=== PATIENT | female | born 1950 | race Caucasian/White ===

== ENCOUNTER 2018-01-31 19:15 | Inpatient (IN) | payer OTHER ==
[2018-01-31] MEDS ORDERED: PANTOPRAZOLE 40 MG INJ IVP ONE (19:53)
[2018-01-31] MEDS ORDERED: SODIUM CHLORIDE 0.9% 10ML INJ IV PRN (19:53)
[2018-01-31 20:30] LABS: Absolute Lymphocytes (CBC) 1.2 K/uL (0.7-4.9); Absolute Neutrophil 13.1 K/uL (1.8-8.0); Basophils % 0.5 % (0-1.3); Eosinophils % 0.1 % (0-4.4); Hematocrit 39.6 % (36.0-45.0); Lymphocytes % 7.6 % (15.3-44.8); MCH 30.5 pg (27.0-35.0); MPV 9.3 fL (7.6-11.3); Monocytes % 6.2 % (3.3-12.3); RBC Red Blood Cell Count 4.45 M/uL (3.86-4.86)
[2018-01-31 20:36] LABS: Potassium 4.3 mEq/L (3.6-5.0)
[2018-01-31 20:39] LABS: Bilirubin Total 1.4 mg/dL (0.3-1.2); Magnesium 1.8 mg/dL (1.8-2.5); Protein, Total 7.2 g/dL (6.0-8.3)
[2018-01-31 20:59] LABS: Blood Morphology Comment NOT SEEN (NOT SEEN); Platelet Estimate ADEQ
[2018-01-31 21:15] VITALS: BMI 27.6
[2018-01-31] MEDS: NA CHLORIDE 0.9% 1,000 ML IV SCH (21:25)
[2018-01-31] MEDS: MEPERIDINE HCL 25 MG/0.5 ML IV PRN (21:26)
[2018-01-31] MEDS: ONDANSETRON 4 MG/2 ML VIAL IV PRN (21:26)
[2018-01-31] MEDS: ACETAMINOPHEN 500 MG TAB PO PRN (22:50)
[2018-01-31] MEDS: CIPROFLOXACIN 400mg IV 400 MG/200 ML BAG IV SCH (22:51)
--- NOTE | 2018-01-31 23:00 | RAD REPORT ---
EXAM DESCRIPTION: RAD - Abdomen Acute Series - 01/31/2018 10:50 pm CLINICAL HISTORY: Abdominal pain COMPARISON: None. FINDINGS: The lungs appear somewhat fibrotic but clear. No subdiaphragmatic free air seen. The heart is normal in size. Bowel gas pattern is nonobstructive. Oral contrast is noted in the colon and small bowel. No patholog ic calcifications seen. Hardware is in place in both hips. Moderate lumbosacral degenerative changes are noted. IMPRESSION: No acute finding is demonstrated.
[2018-01-31 23:06] LABS: Urine Appearance CLOUDY; Urine Bilirubin NEGATIVE (NEG); Urine Blood 1+ (NEG); Urine Color YELLOW; Urine Glucose NEGATIVE (NEG); Urine Protein NEGATIVE (NEG); Urine Urobilinogen 0.2 mg/dL (0.2-1.0); Urine pH 5.5 (5.0-7.0)
[2018-01-31 23:23] LABS: Urine Bacteria >50 /HPF (<20); Urine Culture Reflex Order NOT NEEDED; Urine RBC <5 /HPF (NONE SEEN)
[2018-02-01] MEDS: METRONIDAZOLE 500mg IVPB 500 MG/100 ML BAG IV SCH ×3 (00:08→16:07)
[2018-02-01] MEDS: ACETAMINOPHEN 500 MG TAB PO PRN ×5 (02:29→20:44)
[2018-02-01] MEDS ORDERED: MAGNESIUM SULFATE 1 gm IVPB 1 GM/100 ML BAG IV ONE (03:00)
[2018-02-01] MEDS: MEPERIDINE HCL 25 MG/0.5 ML IV PRN ×2 (03:19→20:44)
[2018-02-01] MEDS: NA CHLORIDE 0.9% 1,000 ML IV SCH ×3 (03:19→20:00)
[2018-02-01] MEDS: ONDANSETRON 4 MG/2 ML VIAL IV PRN ×4 (04:34→20:54)
[2018-02-01] MEDS: PANTOPRAZOLE 40MG TABLET PO SCH (05:40)
[2018-02-01 06:45] LABS: Magnesium 2.4 mg/dL (1.8-2.5)
[2018-02-01] MEDS ORDERED: NA CHLORIDE 0.9% 250 ML IV ONE ×4 (07:40→12:01)
[2018-02-01] MEDS: CIPROFLOXACIN 400mg IV 400 MG/200 ML BAG IV SCH ×2 (08:01→20:44)
[2018-02-01] MEDS: ENOXAPARIN 40 MG/0.4 ML SQ SCH (08:03)
--- NOTE | 2018-02-01 08:17 | RAD REPORT ---
EXAM DESCRIPTION: CT - Abdomen Pelvis Wo Contrast - 01/31/2018 10:32 pm CLINICAL HISTORY: Abdominal pain. COMPARISON: 10/28/2014 TECHNIQUE: CT imaging of the abdomen and pelvis was performed without contrast. Solid organ, bowel a nd vascular assessment is limited due to lack of IV and oral contrast. All CT scans are performed using dose optimization technique as appropriate and may include automated exposure control or mA/KV adjustment according to patient size. FINDINGS: The lower lung abdi are clear. The liver, spleen, pancreas, adrenal glands and right kidney are within normal limits for a limited n on-contrast examination.Mild left hydronephrosis and hydroureter is present. Most likely, there is a distal left ureter stone present, however at the large amount of streak artifact from hip prosthesis limits evaluation/visualization. No bowel obstruction, free air, free fluid or abscess. The appendix is not identified as a discrete structure, however, no secondary findings of appendicitis are identified. The osseous structures are within normal limits. IMPRESSION: Mild left hydronephrosis and hydroureter is present. There is most likely a stone or brynn ris/ edema within the distal left ureter, however adequate visualization is not possible due to abund ant streak artifact. A limited non-contrast examination was performed as detailed.
[2018-02-01 10:42] LABS: Absolute Lymphocytes (CBC) 0.9 K/uL (0.7-4.9); Absolute Monocytes 0.8 K/uL (0.1-1.3); Absolute Neutrophil 10.3 K/uL (1.8-8.0); Basophils % 0.2 % (0-1.3); Eosinophils % 0.1 % (0-4.4); Hematocrit 33.4 % (36.0-45.0); Lymphocytes % 7.5 % (15.3-44.8); MCH 31.3 pg (27.0-35.0); MPV 9.2 fL (7.6-11.3); Monocytes % 6.9 % (3.3-12.3); RBC Red Blood Cell Count 3.71 M/uL (3.86-4.86)
[2018-02-01] MEDS: Meropenem 1,000 MG in NA CHLORIDE 0.9% 100 ML IV SCH ×2 (10:45→17:59)
[2018-02-01 10:53] LABS: Potassium 3.7 mEq/L (3.6-5.0)
[2018-02-01 11:00] LABS: Albumin 3.4 g/dL (3.2-5.5); Bilirubin Direct 0.2 mg/dL (0-0.2); Protein, Total 6.2 g/dL (6.0-8.3)
[2018-02-01] MEDS ORDERED: Meropenem 1000 MG/VIAL IV SCH (11:00)
--- NOTE | 2018-02-01 12:06 | RAD REPORT ---
EXAM DESCRIPTION: RAD - Chest Single View - 02/01/2018 11:47 am CLINICAL HISTORY: Chest pain. COMPARISON: 01/31/2018 FINDINGS: Portable technique limits examination quality. The lungs are grossly clear. The heart is normal in size. No displaced fractures. IMPRESSION: No acute intrathoracic process suspected.
[2018-02-01] MEDS ORDERED: NA CHLORIDE 0.9% 250 ML ONE (13:26)
--- NOTE | 2018-02-01 15:00 | RAD REPORT ---
EXAM DESCRIPTION: CT - Abdomen Pelvis W Contrast - 02/01/2018 2:38 pm CLINICAL HISTORY: Hydronephrosis, possible sepsis clinical presentation COMPARISON: Noncontrast CT study January 31, contrast CT study October 2014 TECHNIQUE: Biphasic, helical CT imaging of the abdomen and pelvis was performed following 100 ml non -ionic IV contrast. Oral contrast was given. Delayed imaging was performed at [address] scans are performed using dose optimization technique as appropriate and may include automated exposure control or mA/KV adjustment according to patient size. FINDINGS: No suspicious lung base finding. The liver, spleen, and pancreas show no suspicious findings. Splenic size is upper normal. Gallbladde r is distended but not dilated. Gallstones can be occult on CT imaging. Gallbladder wall does not padmini ear thickened or edematous. Intrahepatic and extrahepatic biliary tree are mildly prominent. Duct sto mellissa can be occult. No pancreatic or duodenal mass or focal abnormality. This may be biliary tree and gallbladder distention in hospitalized patient. Correlation can be made with any biliary obstructive findings. These are new findings from January 31. No right-sided hydronephrosis. Right side renal function is normal. No stone, mass or other suspiciou s right-sided renal finding. Dilatation of the left side pelvis and calices again noted. Most of this is due to an extrarenal pelvis variant. Size of the pelvis and calices is increased slightly when co mpared to 2014. Current amount of pelvis dilatation is similar to January 31. More distally the right ure ter is not clearly dilated. No obstructing calculus suspected. Pelvic floor assessment is limited due to the bilateral hip prosthesis spray artifact. The patient has numerous pelvic floor phleboliths th at appear to match up to 2014 imaging. An obstructing calculus is not suspected. There is heterogenei ty of the renal parenchymal enhancement pattern. There is an overall congested or edematous appearanc e to the left kidney wished stranding minimally present in the perinephric fat. [place] of the left pel vis and ureter enhance. Delayed images show no significant degree of delay or asymmetry in function. Partially filled urinary bladder shows no suspicious finding. Again, the spray artifact limits pelvic floor assessment. No gastric dilatation or gastric wall thickening. No dilated large or small bowel. An acute bowel pro cess is not suspected. Contrast has reached the distal rectum. No free air, free fluid or pneumatosis. No hernia, mass or bulky lymphadenopathy. Bladder wall thick ening or enhancement not suspected. No adrenal abnormality. No suspicious bony findings. IMPRESSION: Left-sided ureteritis and pyelonephritis are present. No abscess or surgically emergent finding. No new or progressive hydronephrosis findings. Most of the left sided dilatation is at the left renal pelvic level as a normal variant extrarenal pelvis. The absence of any measurable delay or asymmetry in function would support absence of any obstructive process. Distended gallbladder and mildly dilated biliary tree without evidence for mass or stone. This could be physiologic dilatation seen in hospitalized patients. Correlation is needed with any biliary obstr uctive findings.
[2018-02-01] MEDS ORDERED: LOPERAMIDE HCL 2 MG CAPSULE PO STA (17:35)
[2018-02-01] MEDS: ATORVASTATIN 40 MG TAB PO SCH (20:44)
[2018-02-01] MEDS: LORAZEPAM 0.5 MG TABLET PO PRN (22:10)
[2018-02-01] MEDS: ZOLPIDEM TARTRATE 5 MG TABLET PO PRN (22:10)
[2018-02-02] MEDS: Meropenem 1,000 MG in NA CHLORIDE 0.9% 100 ML IV SCH (01:00)
--- NOTE | 2018-02-02 01:18 | PN ---
Date of Progress Note: 02/01/2018 Subjective: The patient was seen this morning for followup. She was complaining of headache, some n ras pain, abdominal pain, and did not get much rest last night, was not feeling good, and appeared qu ite weak and tired and ill-appearing. No vomiting, diarrhea, but abdominal pain continues, unchanged from yesterday. Her blood pressure was low, 98/58, early this morning. After I saw her, IV fluid b olus was ordered and CAT scan result was still pending. When I saw her this morning subsequently, CA T scan result was available. Objective: Vital Signs: Reviewed. HEENT: Unremarkable. Lungs: Clear to auscultation. Heart: Sounds normal. Abdomen: Soft. No guarding, rigidity. Bowel sounds normoactive. No distention. The patient has d iffuse abdominal tenderness, more so in lower abdomen than upper abdomen, unchanged from yesterday. Extremities: No leg edema. Laboratory Data: White count 12, hemoglobin 11.6, and platelets 131. Sodium 130, potassium 4, chlor kenna 96, bicarb 28, BUN 13, creatinine 1.09, and glucose 121. Repeat chemistry shows BUN 11, creatini ne 0.99, and sodium 130. Liver function tests normal. Procalcitonin 0.19. Lactic acid level 10.6. Urine culture, blood culture pending. CAT scan of abdomen and pelvis done yesterday late evening sh owed [id number] left-sided hydronephrosis and this was CAT scan without contrast. So, today, w e did obtain CAT scan of the abdomen with contrast and it was a triple-phase study. Result was discu ssed with radiologist, which shows left-sided ureteritis and pyelonephritis present. No abscess or s urgical emergent finding. No hydronephrosis type of finding. Distended gallbladder and mildly dilat ed biliary tree without any evidence of mass or stone. Impression: 1.Septic shock. 2.Acute pyelonephritis. 3.Anemia. 4.Thrombocytopenia. 5.Hyperlipidemia, mixed. 6.Osteoporosis. 7.Osteoarthritis, multiple sites. 8.Gastroesophageal reflux disease. Plan: When I saw the patient this morning, she appeared very weak, tired, ill-appearing, and subsequ ently after the CAT scan result was available, we did order further CAT scan study to rule out any ev idence of stone and we were able to ruled that out and what we believe now what the patient has is se ptic shock type of situation with urinary tract infection, which is in form of acute pyelonephritis. We will discontinue metronidazole. Meropenem was added, and we will continue her Cipro. DVT prophy laxis will be continued using Lovenox. Pain medications will be continued per order. The patient re ceived multiple IV fluid boluses today as her blood pressure was low and finally her blood pressure h as started to come up. Her lowest blood pressure this morning was 84/48. I did go back to check on her late this morning and she had received IV fluid boluses and this was when I saw her. It was just before she went down for repeat CAT scan. So, she was already looking better with multiple IV fluid boluses and meropenem which was being given to her. So, overall her condition actually already has started to show improvement. She was feeling better and her abdominal tenderness also had improved b y the time when I saw her. Her son was present with her at bedside. Our plan is not to continue IV fluid, continue Cipro, meropenem, and follow up on urine culture as of this evening urine culture is growing gram-negative rods. We will continue her home medications per order. Diet was ordered, and I will see her tomorrow for followup. I wanted to have a Urology consultation, but our urologist, Dr Inocente Gaspar, is out of town. So, we will have the patient follow up with him on an outpatient basis for further evaluation. We will repeat blood work tomorrow. VINEET/MODL Voice ID: [id number] Report ID: [id number]
--- NOTE | 2018-02-02 04:03 | HP ---
Date of Admission: 01/31/2018 Chief Complaint: Not feeling good. History Of Present Illness: This is a 67-year-old female patient, who came into my office with her s on today with complaints of not feeling good at all. She had EGD done by Dr. Balderas on 01/25/2018 and it showed stomach ulcer in the antrum area, hiatal hernia, and was prescribed pantoprazole. The vanessa ent says that she is scheduled to have colonoscopy next week, but meanwhile as of this week on which is 2 days ago now, she started to have abdominal pain, fever, chills, some earache, body ache , burning sensation on urination. She has been having nausea and vomiting. She did not eat anything today and also did not eat anything yesterday. She had very small amount of water and few sips of j uice today and yesterday. No diarrhea. She is feeling very weak and feeling lightheaded, especially when she gets up. She did not feel comfortable driving to my office, so her son drove her to my off ice. After she was evaluated, she was admitted to the hospital. Allergies: TO MORPHINE, PENICILLIN, VANCOMYCIN, AND VALDECOXIB. Medications: Atorvastatin 40 mg at bedtime, clonazepam 0.5 mg daily as needed for anxiety, pantopraz ole 40 mg daily, Prozac 40 mg daily, vitamin C daily, and Tums daily. Review of Systems: GI: As mentioned above. Genitourinary: As mentioned above. Constitutional: As mentioned above. All other systems reviewed and negative. Past Medical History: Significant for diverticulosis, impaired fasting glucose, osteoporosis, mixed hyperlipidemia, osteoarthritis at multiple sites, gastroesophageal reflux disease, carpal tunnel synd audelia. Past Surgical History: Cataract surgery, hip replacement, hysterectomy, tonsillectomy. Family History: Mother had abdominal aortic aneurysm. Social History: Negative for smoking or alcohol use. Physical Examination: Vital Signs: When the patient came into office today: Height 5 feet 1 inch, weight 148 pounds, temp erature 97.6, pulse 76, respiratory rate 15, her supine blood pressure was 110/70, sitting 102/70, st anding 100/74. General: The patient appears acutely ill, not in any distress, appears very weak. HEENT: Head atraumatic, normocephalic. Conjunctivae nonerythematous. Sclerae white. Mouth, no thr ush or edema noted. Ears/Nose, no mass, lesion, discharge noted. Neck: Supple. No JVD, lymph nodes, bruit, thyromegaly noted. Lungs: Bilateral good equal air entry. Clear to auscultation. No rhonchi. No rales. Heart: Normal heart sounds, no murmur or gallop. Abdomen: She has diffuse tenderness all over her abdomen, more so in lower abdomen than upper abdome n. No rebound tenderness. No distention. Bowel sounds normoactive. No hepatosplenomegaly. Extremities: No leg edema. No calf tenderness. Skin: No rash, ulcer, cellulitis. Lymphatics: No lymph node enlargement in neck, supraclavicular, infraclavicular region. Neuro: No focal neurological deficit. Chest: Unremarkable. External Genitalia: Deferred. Rectal: Deferred. Laboratory Data: White count 15.3, hemoglobin 13.6, platelets 151. Sodium 130, potassium 4.3, chlor kenna 96, bicarb 27, BUN 12, creatinine 1.07, glucose 136. Liver function tests unremarkable. Urinaly sis; 3+ esterase, more than 50 wbc's, bacteria more than 50, 1+ blood. Abdominal x-ray unremarkable. CAT scan of the abdomen and pelvis was ordered and it was done, result pending. Impression: 1.Volume depletion. 2.Urinary tract infection. 3.Acute diverticulitis. 4.Hyperlipidemia. 5.Osteoporosis. 6.Osteoarthritis, multiple sites. 7.Impaired fasting glucose. 8.Gastroesophageal reflux disease. Plan: Admit the patient to hospital for further evaluation and management of this problem. The vanessa ent is appropriate for inpatient and is expected to spend 2 midnights in hospital. We will go ahead and initiate IV fluid, IV antibiotics; follow up on culture results; repeat blood work tomorrow; and DVT prophylaxis will be given per order. Details and plan of treatment discussed with the patient. VINEET/DAMI Voice ID: [id number]
[2018-02-02] MEDS: NA CHLORIDE 0.9% 1,000 ML IV SCH ×3 (04:28→20:59)
[2018-02-02] MEDS: ACETAMINOPHEN 500 MG TAB PO PRN ×2 (04:29→09:06)
[2018-02-02] MEDS: PANTOPRAZOLE 40MG TABLET PO SCH (05:52)
[2018-02-02 05:57] LABS: Absolute Lymphocytes (CBC) 0.7 K/uL (0.7-4.9); Absolute Monocytes 0.6 K/uL (0.1-1.3); Absolute Neutrophil 7.4 K/uL (1.8-8.0); Basophils % 0.2 % (0-1.3); Eosinophils % 0.2 % (0-4.4); Hematocrit 30.5 % (36.0-45.0); Lymphocytes % 8.3 % (15.3-44.8); MCH 30.6 pg (27.0-35.0); MCV 90.2 fL (80-100); Monocytes % 6.9 % (3.3-12.3); RBC Red Blood Cell Count 3.38 M/uL (3.86-4.86)
[2018-02-02 06:46] LABS: Magnesium 2.1 mg/dL (1.8-2.5); Potassium 3.7 mEq/L (3.6-5.0)
[2018-02-02] MEDS ORDERED: CEFTRIAXONE 1 GM/NS 50 ML 1 GM/50 ML BAG IV SCH (09:00)
[2018-02-02] MEDS ORDERED: VITAMIN D3 PO SCH (09:00)
[2018-02-02] MEDS ORDERED: POTASSIUM CL SA 10 MEQ TAB PO ONE (09:00)
[2018-02-02] MEDS ORDERED: CALCIUM CARBONATE PO SCH (09:00)
[2018-02-02] MEDS: CIPROFLOXACIN 400mg IV 400 MG/200 ML BAG IV SCH ×2 (09:04→20:47)
[2018-02-02] MEDS: CEFTRIAXONE/SWI 1gm 1 GM/10 ML SYR IV SCH ×2 (09:04→20:47)
[2018-02-02] MEDS: FLUOXETINE 20 MG CAP PO SCH (09:05)
[2018-02-02] MEDS: CALCIUM CARB 500MG/VIT D 200 IU TAB PO SCH (09:06)
[2018-02-02] MEDS: ENOXAPARIN 40 MG/0.4 ML SQ SCH (09:06)
[2018-02-02] MEDS: IBUPROFEN 400 MG TAB PO SCH ×2 (10:43→17:26)
--- NOTE | 2018-02-02 15:54 | PN ---
Date of Progress Note: 02/02/2018 Subjective: The patient was seen this morning for followup. No new complaints or problems reported by patient. Overall, she feels better today than yesterday. Still has some neck pain and little bit headache, but abdominal pain is better. Has diarrhea since her CAT scan yesterday, and she did requ tessie one dose of Imodium yesterday, which she says, it has helped her. No vomiting. Objective: Vital Signs: Reviewed. HEENT: Examination unremarkable. Lungs: Clear to auscultation. Heart: Heart sounds normal. Abdomen: Soft. Bowel sounds normal. No guarding, rigidity, or distention. Presence of mild tender ness in lower abdomen. Overall, much better today than yesterday. Extremities: No leg edema. Laboratory Data: White count 8.8, hemoglobin 10.4, platelets 124. Sodium 133, potassium 3.7, chlori de 105, bicarb 26, BUN 8, creatinine 0.95, glucose 129. Urine culture growing E coli. Blood culture , pending so far. Impression: 1.Acute pyelonephritis. 2.Septic shock, improved. 3.Insomnia. 4.Thrombocytopenia. 5.Anemia. Plan: We will continue Cipro and add ceftriaxone. The patient does not need any meropenem use, so w e will discontinue that medication. According to culture sensitivity, Cipro and ceftriaxone should w ork very well on the E coli infection she has. If she has positive blood culture, we may have to giv e IV antibiotics probably for 5-7 days, and then send her home with oral antibiotics, like Cipro for 2 weeks or so. If her blood culture comes back negative and if her condition is better, then by Ata bauman, which is day after tomorrow, we will consider discharging her with 2 weeks of oral antibiotics, C ipro. Upon discharge from the hospital, she should follow up with a urologist for further evaluation and management, considering the severity of the urinary tract infection that she has. She understan ds that, and she will follow up with Dr. Gaspar. Ambulation was encouraged today and we will reduce I V fluid rate to 75 cc/hour. We will go ahead and give some ibuprofen per order for her neck pain. VINEET/MODL Voice ID: [id number] Report ID: [id number]
[2018-02-02] MEDS: ATORVASTATIN 40 MG TAB PO SCH (20:47)
[2018-02-02] MEDS: ZOLPIDEM TARTRATE 5 MG TABLET PO PRN (20:59)
[2018-02-02] MEDS: DIGOXIN 0.25 MG/ML AMP IV SCH (23:26)
[2018-02-02] MEDS: ENOXAPARIN 80 MG/0.8 ML SQ SCH (23:29)
[2018-02-02 23:31] LABS: Potassium 3.6 mEq/L (3.6-5.0)
[2018-02-02] MEDS: NA CHLORIDE 0.9% 250 ML IV PRN ×2 (23:31→23:51)
[2018-02-03] MEDS ORDERED: POTASSIUM 25 MEQ EFFERV TAB PO ONE (00:16)
[2018-02-03] MEDS: ACETAMINOPHEN 500 MG TAB PO PRN (00:37)
[2018-02-03] MEDS: DIGOXIN 0.25 MG/ML AMP IV SCH (05:00)
[2018-02-03] MEDS: PANTOPRAZOLE 40MG TABLET PO SCH (06:04)
[2018-02-03 06:05] LABS: Potassium 4.3 mEq/L (3.6-5.0)
[2018-02-03 07:45] LABS: Absolute Monocytes 0.4 K/uL (0.1-1.3); Absolute Neutrophil 3.2 K/uL (1.8-8.0); Basophils % 0.4 % (0-1.3); Eosinophils % 3.8 % (0-4.4); Hematocrit 31.7 % (36.0-45.0); Lymphocytes % 20.4 % (15.3-44.8); MCH 31.1 pg (27.0-35.0); MCV 89.6 fL (80-100); MPV 8.6 fL (7.6-11.3); Monocytes % 8.7 % (3.3-12.3); RBC Red Blood Cell Count 3.53 M/uL (3.86-4.86)
[2018-02-03] MEDS: IBUPROFEN 400 MG TAB PO SCH (08:05)
[2018-02-03] MEDS: FLUOXETINE 20 MG CAP PO SCH (08:05)
[2018-02-03] MEDS: CIPROFLOXACIN 400mg IV 400 MG/200 ML BAG IV SCH ×2 (08:06→20:24)
[2018-02-03] MEDS: CEFTRIAXONE/SWI 1gm 1 GM/10 ML SYR IV SCH ×2 (08:06→20:24)
[2018-02-03] MEDS: ENOXAPARIN 80 MG/0.8 ML SQ SCH (08:06)
[2018-02-03] MEDS: NA CHLORIDE 0.9% 1,000 ML IV SCH ×2 (11:40→13:35)
--- NOTE | 2018-02-03 11:48 | PN ---
Date of Progress Note: 02/03/2018 Subjective: The patient was seen this morning for followup. When I walked into her room, she was up set because she has been sick lately and she is concerned that too many things wrong with her. I did talk to her and tried to explain her and reassured her. Last night, she had atrial fibrillation wit h rapid ventricular rate. Her heart rate was around 130 or so. She was given 1 dose of digoxin, and her potassium and magnesium were normal. She converted to sinus rhythm during nighttime after just 1 dose of digoxin. Second dose of digoxin was not given. This morning, she was complaining of feeli ng bloated and some discomfort in the epigastric and right upper quadrant region. Objective: Vital Signs: Reviewed. HEENT: Unremarkable. Lungs: Clear to auscultation. No rhonchi or rales. Heart: Heart sounds normal. Abdomen: Soft. Bowel sounds normal. No guarding, rigidity. Presence of tenderness in right upper quadrant. No rebound tenderness. Extremities: No leg edema. Laboratory Data: White count 4.8, hemoglobin 11, platelets 131. Sodium 141, potassium 4.3, chloride 111, bicarb 27, BUN 7, creatinine 0.82, glucose 111. TSH 4.62. Magnesium last night was 2.0 when t he patient had atrial fibrillation problem. Impression: 1.Acute pyelonephritis. 2.Septic shock, resolved. 3.Right upper quadrant pain. 4.Thrombocytopenia. Plan: We will go ahead and get abdominal ultrasound done. It will be a limited right upper quadrant ultrasound to evaluate gallbladder. On CAT scan, her gallbladder was distended, but that could be b ecause of her acute illness, but there was no evidence of any gallbladder wall thickening or fluid ar ound the gallbladder, so it did not look like acute cholecystitis, but today she definitely is having right upper quadrant pain and tenderness and we will need to look into that. Depending on the ultra sound result, we will decide about general surgeon to be consulted. Meanwhile, we will continue anti biotics, Cipro and ceftriaxone for her pyelonephritis problem. Ambulation was encouraged. I will se e her tomorrow for followup. VINEET/MODL Voice ID: [id number] Report ID: [id number]
[2018-02-03] MEDS: CALCIUM CARB 500MG/VIT D 200 IU TAB PO SCH (13:35)
--- NOTE | 2018-02-03 13:58 | RAD REPORT ---
EXAM DESCRIPTION: US - Abdomen Exam Limited - 02/03/2018 1:36 pm CLINICAL HISTORY: Abdominal pain. COMPARISON: February 02, 2018 cat scan FINDINGS: The gallbladder wall is is thickened. Pericholecystic fluid is present. A gallstone is no t seen The common bile duct measures 8 millimeter IMPRESSION: Thickening of the gallbladder wall with pericholecystic fluid could indicate acute naila cystitis. Other possibilities include systemic causes such as liver dysfunction, renal and heart fail ure. The examination was discussed with Dr. Pabon 1:50 p.m. on February 03, 2018 Mild dilatation of the common bile duct
[2018-02-03] MEDS: MEPERIDINE HCL 25 MG/0.5 ML IV PRN ×2 (16:33→20:25)
[2018-02-03] MEDS: ATORVASTATIN 40 MG TAB PO SCH (20:24)
[2018-02-03] MEDS: ONDANSETRON 4 MG/2 ML VIAL IV PRN (20:26)
[2018-02-03] MEDS: ZOLPIDEM TARTRATE 5 MG TABLET PO PRN (21:32)
[2018-02-04] MEDS: ACETAMINOPHEN 500 MG TAB PO PRN ×3 (00:03→22:33)
--- NOTE | 2018-02-04 01:32 | CON ---
Date of Consultation: 02/03/2018 Reason For Service: Epigastric right upper quadrant pain. Indication For Procedure: This is the case of a 67-year-old patient, who came to us on sepsis, found to be possible etiology a pyelonephritis at the same time. She did state that she could be developi ng also acute cholecystitis and a Surgical consult was obtained for evaluation. I discussed the hist ory with Dr. Pabon, since he has been seeing the patient for few days. He gave me some details about the case. The patient stated that her pain is on the right flank and also right upper quadrant. She denies having any hematuria although she states some dysuria. Denies any recent traveling out of [facility]. Denies any family member sick at home. Allergies: INCLUDE MORPHINE, PENICILLIN, AND VANCOMYCIN. Past Surgical History: Included hip replacement, hysterectomy, tonsillectomy, and cataract surgery. Family History: Includes peripheral vascular disease. Social History: She does not smoke. She does not drink alcohol. Review of Systems: Constitutional: Denies any fever. Respiratory: Denies any shortness of breath. Gastrointestinal: Right upper quadrant pain. No jaundice. Genitourinary: The patient states some dysuria. Physical Examination: General: The patient is awake and alert. HEENT: Pupils equal, reactive, anicteric. Neck: Supple. Abdomen: Mild right upper quadrant tenderness. No Perez signs today. Pelvic/rectal: Deferred. Extremities: Good capillary refill. Laboratory Data: Blood work shows WBC count of 4.8, although it came down from 15.3, about 3 days ag o. Potassium is 4.3 with LFTs within normal limits. UA shows a nitrite negative and WBC count of mo re than 50. Diagnostic Data: Ultrasound today shows thickening of gallbladder, cannot rule out acute cholecystit is. CAT scan of the abdomen and pelvis read by Dr. Edge 2 days ago. At that moment, the gallblad cody was distended but not dilated and the gallbladder wall did not appear to be thickened or edematou s. No stone seen at that moment. Assessment And Plan: This is a 67-year-old patient, who came here with pyelonephritis with septic sh ock. At that moment, the gallbladder was fine but no diffuse inflammation of the gallbladder with a calculus cholecystitis as the working diagnosis. The patient already on antibiotics. She has no Mur phy sign, but she is scheduled a HIDA scan for tomorrow. The patient understood she may have to go f or laparoscopic, possible open, cholecystectomy with benefits, alternatives, and risks explained. We will wait for that test. We are going to keep her n.p.o. after midnight, and then we will proceed a ccordingly. TOPHER Voice ID: [id number] Report ID: [id number]
[2018-02-04] MEDS: NA CHLORIDE 0.9% 1,000 ML IV SCH ×2 (02:21→16:10)
[2018-02-04] MEDS: PANTOPRAZOLE 40MG TABLET PO SCH (07:07)
[2018-02-04] MEDS: FLUOXETINE 20 MG CAP PO SCH (09:18)
[2018-02-04] MEDS: CEFTRIAXONE/SWI 1gm 1 GM/10 ML SYR IV SCH ×2 (09:18→20:08)
[2018-02-04] MEDS: CALCIUM CARB 500MG/VIT D 200 IU TAB PO SCH (09:18)
[2018-02-04] MEDS: CIPROFLOXACIN 400mg IV 400 MG/200 ML BAG IV SCH ×2 (09:18→20:08)
--- NOTE | 2018-02-04 09:30 | EKG ---
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
[2018-02-04] MEDS ORDERED: METOPROLOL TARTRATE 5 MG/5 ML INJ IV STA (09:43)
--- NOTE | 2018-02-04 09:45 | RAD REPORT ---
EXAM DESCRIPTION: NM - Hepatobiliary System W/ Ph - 02/04/2018 8:06 am CLINICAL HISTORY: Abdominal pain. TECHNIQUE: 6 millicuries technetium Choletec was administered intravenously. 1.4 micrograms Kinevac was administered intravenously and images of the gallbladder obtained for 36 minutes. COMPARISON: Ultrasound February 03, 2018. FINDINGS: The liver demonstrates prompt radiotracer uptake. Activity is seen within the gallbladder by 13 minutes. Uptake is seen within small bowel. After the administration of CCK gallbladder ejection fraction equals 59%. The patient was asymptomatic. IMPRESSION: 1. No evidence of acute cholecystitis as radiotracer enters the gallbladder. 2. Normal gallbladder ejection fraction of 59%.
[2018-02-04] MEDS: MEPERIDINE HCL 25 MG/0.5 ML IV PRN (16:10)
--- NOTE | 2018-02-04 16:58 | ECHO ---
HEIGHT: 5 ft 1 in WEIGHT: 146 lb 0 oz DATE OF STUDY: 02/04/[address]: Dane Pabon MD 2-DIMENSIONAL: YES M.MODE: YES DOPPLER: YES COLOR FLOW: YES TDS: PORTABLE: DEFINITY: BUBBLE STUDY: DIAGNOSIS: ATRIAL FIBRILLATION CARDIAC HISTORY: CATHERIZATION: NO SURGERY: NO PROSTHETIC VALVE: NO PACEMAKER: NO MEASUREMENTS (cm) DIASTOLIC (NORMALS) SYSTOLIC (NORMALS) IVSd 1.0 (0.6-1.2) LA Diam 3.7 (1.9-4.0) LVEF 54% LVIDd 4.5 (3.5-5.7) LVIDs 3.3 (2.0-3.5) %FS 28% LVPWd 1.0 (0.6-1.2) Ao Diam 3.0 (2.0-3.7) 2 DIMENSIONAL ASSESSMENT: RIGHT ATRIUM: NORMAL LEFT ATRIUM: NORMAL RIGHT VENTRICLE: NORMAL LEFT VENTRICLE: NORMAL TRICUSPID VALVE: NORMAL MITRAL VALVE: NORMAL PULMONIC VALVE: NORMAL AORTIC VALVE: NORMAL PERICARDIAL EFFUSION: NONE AORTIC ROOT: NORMAL LEFT VENTRICULAR WALL MOTION: NORMAL DOPPLER/COLOR FLOW: MILD MITRAL REGURGITATION TRICUSPID REGURGITATION. MILD PULMONARY HYPERTENSION. NORMAL RIGHT VENTRICULAR SYSTOLIC PRESSURE 42 mmHg. . COMMENTS: NORMAL TWO DIMENSIONAL ECHOCARDIOGRAM. MILD MITRAL REGURGITATION TRICUSPID REGURGITATION. MILD PULMONARY HYPERTENSION. TECHNOLOGIST: LITO PEREIRA
[2018-02-04] MEDS ORDERED: ENOXAPARIN 40 MG/0.4 ML SQ SCH (17:00)
[2018-02-04] MEDS: ATORVASTATIN 40 MG TAB PO SCH (20:09)
[2018-02-04] MEDS: LORAZEPAM 0.5 MG TABLET PO PRN (20:12)
[2018-02-04] MEDS: ZOLPIDEM TARTRATE 5 MG TABLET PO PRN (22:34)
--- NOTE | 2018-02-05 00:23 | PN ---
Date of Progress Note: 02/04/2018 Subjective: The patient was seen this morning for followup. No new complaints or problems reported by her. Overall, she feels better today than yesterday. I did talk to Dr. Carmichael yesterday barrie ayers and he did evaluate the patient. Objective: Vital Signs: Reviewed. HEENT: Unremarkable. Lungs: Clear to auscultation. Heart: Heart sounds normal. Abdomen: Soft. Bowel sounds normal. No guarding, rigidity, or distention, but the patient does hav e some mild tenderness in the right upper quadrant. Extremities: No leg edema. Laboratory Data: HIDA scan shows normal ejection fraction of 53%. Impression: 1.Paroxysmal atrial fibrillation. 2.Acute pyelonephritis. Plan: The patient's HIDA scan results reviewed. We will follow with Dr. Carmichael to see whether he would suggest any gallbladder surgery or not. Meanwhile, we will continue antibiotics per order for pyelonephritis problem. We will follow up on echo result. The patient did go back into atrial fibri llation with rapid ventricular rate today. Blood pressure was stable. Heart rate was around 130 and 5 mg slow IV push Lopressor was ordered and we will follow up with body care manager for further manageme nt of this. I will see her tomorrow for followup. VINEET/MODL Voice ID: [id number] Report ID: [id number]
[2018-02-05] MEDS: ACETAMINOPHEN 500 MG TAB PO PRN (02:57)
[2018-02-05 03:36] VITALS: O2SAT 93
[2018-02-05] MEDS: NA CHLORIDE 0.9% 1,000 ML IV SCH (03:40)
[2018-02-05 04:06] LABS: Absolute Lymphocytes (CBC) 1.1 K/uL (0.7-4.9); Absolute Monocytes 0.4 K/uL (0.1-1.3); Absolute Neutrophil 3.2 K/uL (1.8-8.0); Basophils % 0.7 % (0-1.3); Hematocrit 29.8 % (36.0-45.0); Lymphocytes % 22.1 % (15.3-44.8); MCH 30.9 pg (27.0-35.0); MCV 89.4 fL (80-100); MPV 9.3 fL (7.6-11.3); Monocytes % 7.9 % (3.3-12.3); RBC Red Blood Cell Count 3.34 M/uL (3.86-4.86)
[2018-02-05 04:25] LABS: Albumin 2.9 g/dL (3.2-5.5); Bilirubin Total 0.5 mg/dL (0.3-1.2); Magnesium 1.9 mg/dL (1.8-2.5); Potassium 3.8 mEq/L (3.6-5.0); Protein, Total 5.3 g/dL (6.0-8.3)
[2018-02-05] MEDS: PANTOPRAZOLE 40MG TABLET PO SCH (05:45)
[2018-02-05] MEDS: MEPERIDINE HCL 25 MG/0.5 ML IV PRN (05:52)
--- NOTE | 2018-02-05 06:33 | CON ---
Date of Consultation: 02/03/2018 Reason For Consultation: Atrial fibrillation. History Of Present Illness: Ms. Arias is a 67-year-old woman who was admitted on 01/31/2018, for hydr onephrosis. She has a history of dyslipidemia and gastroesophageal reflux disease. She did not have any cardiac symptoms, but was noted to be in atrial fibrillation with rapid ventricular response. H er atrial fibrillation resolved after one dose of digoxin. She denied any chest pain with PND, ortho pnea, pedal edema, palpitation, or syncope. According to her she has a history of mitral valve prola pse in the past. Had a negative stress test in 2014. TSH is pending. Echocardiogram is pending. Past Medical History: As stated earlier. Allergies: INCLUDE MORPHINE, PENICILLIN, VANCOMYCIN. Review of Systems: Negative. Social History: Negative. Family History: Negative. Medications At Home: Lipitor, Protonix, Prozac, and Ativan. Physical Examination: General: Ms. Arias is a very pleasant lady in no acute distress with sinus rhythm. HEENT: Negative. Neck: Supple, no bruit. Chest: Clear. Cardiac: Regular rhythm and rate without any murmurs, gallops, or rubs. Abdomen: Benign. Extremities: Revealed no clubbing, cyanosis, or edema. Diagnostic Data: Fairly unremarkable from a cardiac standpoint. Impression And Plan: Paroxysmal atrial fibrillation. This certainly may have been secondary to her stress and anxiety over her present illness and admission. She was fairly dehydrated clinically when she first came in. Her electrolytes are normal. Certainly, atrial fibrillation cannot be blamed on that. Her TSH is pending and an echocardiogram is pending. I certainly would not commit Mrs. Arias to do a full anticoagulation. For now I would add aspirin to her regimen and have her avoid taking n onsteroidal anti-inflammatory agents as possible as she takes that for arthritis. We will see what h er echocardiogram shows before making further decisions regarding anticoagulation. For now, she is o n Lovenox. I will discuss the case further with Dr. Pabon after the thyroid level and echocardiogram are back. Her other problems include dyslipidemia, on Lipitor; gastroesophageal reflux disease for w jonnah she takes Protonix. She has stated that she has a history of mitral valve prolapse in the past with a negative stress test. We will see if the echo reveals mitral valve prolapse, as she thinks. TOMAS/DAMI Voice ID: [id number] Report ID: [id number]
[2018-02-05] MEDS ORDERED: POTASSIUM CL SA 10 MEQ TAB PO ONE (06:40)
[2018-02-05] MEDS: CIPROFLOXACIN 400mg IV 400 MG/200 ML BAG IV SCH (08:40)
[2018-02-05] MEDS: FLUOXETINE 20 MG CAP PO SCH (08:41)
[2018-02-05] MEDS: CEFTRIAXONE/SWI 1gm 1 GM/10 ML SYR IV SCH (08:41)
[2018-02-05] MEDS: CALCIUM CARB 500MG/VIT D 200 IU TAB PO SCH (08:41)
[2018-02-05] MEDS ORDERED: METOPROLOL TAR 25 MG TAB PO SCH (09:00)
[2018-02-05] MEDS ORDERED: ASPIRIN EC 81 MG TAB PO SCH (09:00)
[2018-02-05] MEDS ORDERED: GABAPENTIN 100 MG CAP PO SCH (09:00)
[2018-02-05 11:45] VITALS: BP 127/69; TEMP 97.5
--- NOTE | 2018-02-05 14:42 | EKG ---
Test Date: 2018-02-02 Test Time: 22:43:40 Crocodile Farmer: RT-O MEASUREMENT RESULTS: Intervals: Rate: 130 CA: QRSD: 80 QT: 330 QTc: 485 [place]: P: CA: QRS: 34 T: -26 INTERPRETIVE STATEMENTS: Atrial fibrillation with rapid ventricular response Nonspecific ST and T wave abnormality, probably digitalis effect Abnormal ECG Compared to ECG 11/07/2010 08:53:14 ST (T wave) deviation now present Sinus rhythm no longer present Electronically Signed On 02-05-18 14:40:13 CDT by Laith Novak
--- NOTE | 2018-02-06 06:57 | DS ---
Date of Discharge: 02/05/2018 Disposition: Discharged to go home. Physical Examination: HEENT: Unremarkable. Lungs: Clear to auscultation. Heart: Sounds normal. No murmur or gallop. Abdomen: Soft. Bowel sounds normal. No guarding, rigidity, or distention. Minimum right upper mee drant tenderness present, much better today than last few days. Extremity Exam: No leg edema. Discharge Medications And Instructions: 1.Continue prior home medication. 2.Take aspirin 81 mg p.o. daily with food and take Cipro 500 mg 2 times a day for 2 weeks. 3.Take gabapentin 100 mg p.o. 2 times a day. 4.Follow up at my office and follow with Dr. Carmichael, Dr. Novak, and Dr. Gaspar in 2 weeks. 5.Follow up with Dr. Balderas in 3 weeks. Laboratory Data: Last white count today 4.9, hemoglobin 10.3, and platelet count 151. Highest white count when she came in 15.3, hemoglobin 13.6, platelets 151. Last chemistry today; sodium 139, pota ssium 3.8, chloride 105, bicarb 29, BUN 6, creatinine 0.74, glucose 111, magnesium 1.9. Liver functi on tests; SGOT 57, otherwise SGPT normal at 46. TSH normal at 4.62, done on 02/03/2018. Echocardiog tato from 02/04/2018 showing normal ejection fraction 54%, mild mitral regurgitation and tricuspid reg urgitation. HIDA scan done yesterday shows no evidence of any acute cholecystitis, normal gallbladde r ejection fraction 59%. Ultrasound of abdomen showing thickening of the gallbladder wall with peric holecystic fluid, no gallstones. CT scan of abdomen showing left-sided ureteritis and pyelonephritis changes. Hospital Course: A 67-year-old female patient, came into office on 01/31/2018 complaining of not fee ling good. After she was evaluated, she was admitted to the hospital. She had nausea, vomiting, poo r appetite, as well as some dysuria. See dictated H and P for more information. After she was evalu ated at the office, she was admitted to the hospital. Along with urinary tract infection, I was conc erned about possibility of diverticulitis. Initially, CAT scan of the abdomen and pelvis without con trast was negative for diverticulitis but it did reveal some concerning finding of left-sided hydrone phrosis. The day after admission to the hospital, the patient had a drop in her blood pressure and I was concerned about septic shock. She was given IV fluid. Procalcitonin and lactic acid level were unremarkable. She was initially started on Cipro and Flagyl, and day after admission we added merop enem. Blood culture was done and blood cultures remain negative. Urine culture grew E. coli; it was sensitive to multiple organisms. Repeat CAT scan with oral and IV contrast, and this was a triple p hase contrast study; it was negative for any evidence of stone or obstruction and it did show evidenc e of changes of pyelonephritis and ureteritis on the left side. After this result was available, we discontinued metronidazole. There was no evidence of diverticulitis on the repeat CAT scan as well. We continued ceftriaxone. Once we got the results back, meropenem was discontinued and ceftriaxone was started. We continued Cipro that was started from the beginning. E. coli was sensitive to Cipro and ceftriaxone. She started improving but then over the weekend she started to have mostly right u pper quadrant pain and tenderness in the right upper quadrant with some bloating type of sensation in her abdomen. I was concerned about cholecystitis, so limited right upper quadrant abdominal ultraso und was done with results as outlined above. Dr. Carmichael was consulted from General Surgery and the HIDA scan was done yesterday which came back as mentioned above. Dr. Carmichael gave her option that he can either do surgery now or he can wait until she develops more symptoms, and the patient elected to not to go for surgery and wait and see if she improves on her own, and obviously between yesterda y and today her symptoms have improved significantly, abdominal findings are much better, tenderness is much better. So, we hope that she will not require any surgery for gallbladder any time soon. Carla booth is tolerating diet very well and ambulating well. Her blood pressure has come up. In fact, this m orning her systolic blood pressure was between 140-150. Over the weekend, she started to have paroxy smal atrial fibrillation. She received 2 or 3 therapeutic doses of Lovenox, otherwise she remained o n prophylactic dose of Lovenox throughout this hospitalization. Cardiology consultation was obtained and over the weekend when she had her paroxysmal atrial fibrillation she converted to sinus rhythm w ith one dose of digoxin. Yesterday, she had another episode of atrial fibrillation, and one dose of IV metoprolol was given and she converted back to sinus rhythm. No further intervention was suggeste d by computer programming professor. The patient was advised to follow up with computer programming professor on outpatient basis. Over all, her condition has improved significantly, and she is being discharged in stable condition with a juan j-mentioned medication and instructions. Considering the significant urinary tract infection that she had this time, she was advised to follow up with a urologist for further outpatient workup and s he will follow up with Dr. Gaspar. Final Diagnoses: 1.Septic shock. 2.Acute pyelonephritis. 3.Volume depletion. 4.Paroxysmal atrial fibrillation. 5.Hyperlipidemia. 6.Arthritis, multiple sites. 7.Osteoporosis. 8.Gastroesophageal reflux disease. 9.Impaired fasting glucose. 10.Anemia. VINEET/MODL Voice ID: [id number] Report ID: [id number]
== END 2018-02-05 14:11 | disposition home or self-care (01) | DRG 871 ==
LOC: 4TH 19:15
PROVIDERS: ADMIT Internal Medicine; ATTEND Internal Medicine
DX: A41.9 Sepsis, unspecified organism (principal); R65.21 Severe sepsis with septic shock; N10 Acute pyelonephritis; E86.9 Volume depletion, unspecified; I48.0 Paroxysmal atrial fibrillation; E78.5 Hyperlipidemia, unspecified; M19.90 Unspecified osteoarthritis, unspecified site; K21.9 Gastro-esophageal reflux disease without esophagitis; D64.9 Anemia, unspecified; B96.20 Unspecified Escherichia coli [E. coli] as the cause of diseases classified elsewhere; N28.89 Other specified disorders of kidney and ureter; Z88.0 Allergy status to penicillin; K57.90 Diverticulosis of intestine, part unspecified, without perforation or abscess without bleeding
CPT/HCPCS: 36415; 71045; 74022; 74176; 74177; 76705; 78227; 80048; 80053; 80076; 81001; 83605; 83735; 84145; 84443; 85025; 87040; 87077; 87086; 87088; 87186; 93005; 93306; A9537; C9113; J0696; J0744; J1160; J1650; J2175; J2405; J2805; J3475; J7030; Q9967

== ENCOUNTER 2021-08-01 07:38 | Day surgery (SDC) | payer OTHER ==
[2021-07-28 11:53] LABS: Absolute Lymphocytes (CBC) 1.7 K/uL (0.7-4.9); Basophils % 0.6 % (0-1.3); Lymphocytes % 22.2 % (15.3-44.8); MPV 8.6 fL (7.6-11.3); RBC Red Blood Cell Count 4.75 M/uL (3.86-4.86)
--- NOTE | 2021-07-28 12:05 | RAD REPORT ---
EXAM DESCRIPTION: RAD - Chest Pa And Lat (2 Views) - 07/28/2021 11:53 am CLINICAL HISTORY: Pre Op pending cholecystectomy COMPARISON: February 2019 TECHNIQUE: Frontal and lateral views of the chest were obtained. FINDINGS: The lungs are clear. Interstitial pattern matches comparison. No failure or volume overlo ad. Heart size is normal and central vasculature is within normal limits. No pleural effusion or pne umothorax seen. No acute bony finding noted. No aortic abnormality. IMPRESSION: No acute cardiopulmonary process. No significant change from comparison study.
[2021-07-28 12:20] LABS: Albumin 3.8 g/dL (3.4-5.0); Bilirubin Direct 0.1 mg/dL (0-0.2); Bilirubin Total 0.8 mg/dL (0.2-1.0); Potassium 4.2 mmol/L (3.5-5.1); Protein, Total 7.3 g/dL (6.4-8.2)
--- NOTE | 2021-07-30 12:41 | EKG ---
Test Date: 2021-07-28 Test Time: 11:30:39 Educational Interpreter: GIBRAN MEASUREMENT RESULTS: Intervals: Rate: 54 OR: 162 QRSD: 82 QT: 440 QTc: 417 [place]: P: 74 OR: 162 QRS: 42 T: 51 INTERPRETIVE STATEMENTS: Sinus bradycardia Otherwise normal ECG Compared to ECG 02/03/2018 02:33:29 No significant changes Electronically Signed On 07-30-21 12:36:03 CALKER by Laith Novak
[2021-08-01] MEDS ORDERED: Ringers Lactate 1,000 ML IV ONE ×2 (07:58→09:25)
[2021-08-01] MEDS ORDERED: ACETAMINOPHEN 500 MG TAB ONE (08:14)
[2021-08-01] MEDS ORDERED: FENTANYL CITR 100 MCG/2 ML ONE (08:15)
[2021-08-01] MEDS ORDERED: CELECOXIB 100 MG CAPSULE ONE (08:15)
[2021-08-01] MEDS ORDERED: BUPIVACAINE 0.5% Inj,MDV 50 mL VIAL ONE (08:15)
[2021-08-01] MEDS ORDERED: ONDANSETRON 4 MG/2 ML VIAL ONE (08:16)
[2021-08-01] MEDS ORDERED: ROCURONIUM 50 MG/5 ML VIAL IV ONE (08:16)
[2021-08-01] MEDS ORDERED: propofoL 200 MG/20 ML VIAL IV ONE (08:16)
[2021-08-01] MEDS ORDERED: LIDOCAINE 2% MPF 5 ML VIAL ONE (08:16)
[2021-08-01] MEDS ORDERED: CIPROFLOXACIN 400mg IV 400 MG/200 ML BAG IV ONE (08:23)
[2021-08-01] MEDS ORDERED: Phenylephrine HCl 10 MG/ML 1 ML VIAL ONE (09:06)
[2021-08-01] MEDS ORDERED: NS 0.9% VIAL 10 ML ONE (09:07)
[2021-08-01] MEDS ORDERED: EPHEDRINE SULF 50 MG/ML VIAL ONE (09:07)
--- NOTE | 2021-08-01 09:19 | P.BOP ---
Preoperative diagnosis: Acute cholecystitis, symptomatic cholelithiasis Postoperative diagnosis: same, intrabdominal adhesions Primary procedure: Laparoscopic cholecystectomy Secondary procedure: Lysis of adhesions Epic [facility] Specialists: Carrie Diop) Estimated blood loss: <10cc Specimen: gb Findings: as above Anesthesia: General Complications: None Transferred to: Recovery Room Condition: Good
[2021-08-01] MEDS ORDERED: KETOROLAC 30 MG/ML INJ ONE (09:20)
[2021-08-01] MEDS ORDERED: Mastisol Adhesive Liq ONE (09:21)
[2021-08-01 10:03] VITALS: O2SAT 100
[2021-08-01 10:09] VITALS: TEMP 97.1
[2021-08-01 10:45] VITALS: BP 119/57
[2021-08-01] MEDS ORDERED: TRAMADOL HCL 50 MG TAB ONE (11:07)
[2021-08-01] MEDS ORDERED: TRAMADOL HCL 50 MG TAB PO ONE (11:10)
--- NOTE | 2021-08-01 12:21 | OP ---
Date of Procedure: 08/01/2021 Surgeon: Mono Carmichael MD Software Clerk: FABIOLA Brasher. Preoperative Diagnoses: Acute cholecystitis, symptomatic cholelithiasis. Postoperative Diagnoses: Acute cholecystitis, symptomatic cholelithiasis, intraabdominal adhesions. Procedures Performed: Laparoscopic cholecystectomy, laparoscopic lysis of adhesions. Estimated Blood Loss: Less than 10 cc. Specimen: Gallbladder. Anesthesia: General plus local. Findings: The patient has acute cholecystitis and symptomatic cholelithiasis. A lot of omentum stuc k into the gallbladder and also liver, so we have to get those adhesions with the help of LigaSure to be able to do the surgery. This is a case of a female, who comes to us with chronic right upper mee drant abdominal pain. She knows about a gallstone. She knows about cholecystitis. She has been try ing to change her diet and trying to change her habits, but is not helping at this moment. She saw h er hemodialysis rn and also the primary doctor recommend a cholecystectomy, so she came to our off ice with benefits, alternatives, and risks fully explained, which include, but not limited to infecti on, bleeding, damage to adjacent structures, anesthesia complication, MD and . She also underst ands this may not relieve the symptoms. She might need more than one surgical intervention. She und erstood, signed a consent. Procedure In Detail: The patient was brought to the operating room and placed in supine position. A nesthesia was done without complication. Abdominal area was prepped and draped in a sterile fashion. Marcaine 0.5% was injected for local anesthetic followed by sharp incision of the skin in the infra umbilical region. The patient has a previous trying to use the same scars patient had bef ore with the umbilical area. Incision was carried down to fascia, which was opened under direct visi on. Peritoneum was encountered, opened under direct vision. Vicryl #1 placed inside the fascia. Anne sson trocar was carefully introduced. No bleeding was obtained. I placed 3 more trocars, 5 mm each one of them, 1 epigastric area, 2 in the right upper quadrant using the same technique, which consist ed of local anesthetic, sharp incision of the skin and introduction of the trocars under direct visio n. This allowed me to put a grasper in the fundus of the gallbladder, but we had so many adhesions o f omentum to the area. We cannot do it safely with LigaSure device and carefully we proce eded to remove the adhesions, not only to the gallbladder, but also to the liver. Once we have that done, it took half time. We proceeded then to a place a grasper in the fundus of the gallbladder, an other grasper in the infundibulum retracting the gallbladder in the inferolateral fashion exposing th e triangle of Calot obtaining critical view. The cystic duct and cystic artery were clearly isolated , free circumferentially and a connection between those and the gallbladder were clearly identified. I proceeded to ligate those by using at least 3 clips proximally, 1 clip distally, ligation in middl e. Same was done with the cystic artery. No bile leak. No bleeding. The gallbladder was removed f rom liver using Bovie cauterizer and removed from abdominal cavity using EndoCatch through the umbili sue incision. The area was inspected once again. No bile leak. No bleeding. At that moment, I pro ceeded to remove the trocars under direct vision. Deflated the pneumoperitoneum. Closed the fascia with #1 Vicryl, irrigated subcutaneous tissue, closed that with 3-0 chromic and skin in a subcuticula r fashion with 3-0 chromic and Steri-Strips on top. Sponge counts and instrument counts correct. Th e patient tolerated the procedure well. The patient was sent to recovery in stable condition. Disposition: Home. Condition: Stable. Activity: As tolerated. No heavy lifting. Plan: Follow up in my office in 1 week. Call for appointment at [phone]. Keep area dry for 48 haylie rs, then may shower. Keep Steri-Strip intact. Medications: See orders. HM/MODL Voice ID: [id number] Report ID: [id number]
== END 2021-08-01 11:40 | disposition home or self-care (01) ==
LOC: OR 07:38
PROVIDERS: ATTEND Surgery
PROC: 0DNU4ZZ Release Omentum, Percutaneous Endoscopic Approach (ICD-10-PCS; 2021-08-01)
PROC: 0FT44ZZ Resection of Gallbladder, Percutaneous Endoscopic Approach (ICD-10-PCS; principal; 2021-08-01 08:30)
DX: K80.10 Calculus of gallbladder with chronic cholecystitis without obstruction (principal); K66.0 Peritoneal adhesions (postprocedural) (postinfection); Z20.822 Contact with and (suspected) exposure to COVID-19
CPT/HCPCS: 93005; 85025; 80048; 36415; 82150; 80076; 88304; 83690; 71046; 47562; 49329; U0002; J2704; J2370; J3010; J7120 ×2; J2405; J0744